=== PATIENT | female | born 1970 | race American Indian/Alaskan Native ===

== ENCOUNTER 2016-12-29 07:24 | Outpatient (CLI) | payer BC ==
--- NOTE | 2016-12-29 15:13 | PET Report ---
PET SB TO MT INITIAL: HISTORY: Renal cell carcinoma. TECHNIQUE: 15.9 millicuries F-18 FDG was administered intravenously. Noncontrast CT images and PET images were obtained from the skull base to the proximal thighs. Fused images were reviewed on a workstation. The patient's blood glucose level measured 118. COMPARISON: None at this facility. FINDINGS: BRAIN: physiologic FDG uptake in the imaged brain. NECK: physiologic FDG uptake. MEDIASTINUM: physiologic FDG uptake. LUNGS: physiologic FDG uptake. PLEURA/PERICARDIUM: physiologic FDG uptake. THORACIC LYMPH NODES: physiologic FDG uptake. HEPATOBILIARY: physiologic FDG uptake. Cholelithiasis is noted. PANCREAS: physiologic FDG uptake. SPLEEN: physiologic FDG uptake. ADRENAL GLANDS: physiologic FDG uptake. KIDNEYS/RENAL COLLECTING SYSTEMS: An approximate 3.5 cm mass projects from the anterior, superior pole of the left kidney. This mass is hypometabolic to surrounding kidney with Max SUV measuring 2.1. BOWEL/MESENTERY: physiologic FDG uptake. PELVIC VISCERA: physiologic FDG uptake. ABDOMINAL/PELVIC LYMPH NODES: physiologic FDG uptake. MUSCULOSKELETAL: physiologic FDG uptake. IMPRESSION: 3.5 cm hypometabolic left renal mass which could represent renal cell carcinoma. No evidence for metastasis on PET CT.
== END 2016-12-29 07:25 | disposition home or self-care (01) ==
LOC: PET 07:24
PROVIDERS: ATTEND Internal Medicine Hematology & Oncology
DX: N28.89 Other specified disorders of kidney and ureter (principal); E66.9 Obesity, unspecified; K80.20 Calculus of gallbladder without cholecystitis without obstruction
CPT/HCPCS: 78815; A9552